=== PATIENT | male | born 1990 | race Hispanic/Latino ===

== ENCOUNTER 2019-04-29 08:39 | Emergency (ER) | payer SELFPAY ==
[2019-04-29 10:02] LABS: RAPID GROUP A STREP NEGATIVE (NEGATIVE)
== END 2019-04-29 10:29 | disposition home or self-care (01) ==
LOC: EDH 08:39
DX: K59.00 Constipation, unspecified (principal); Z90.49 Acquired absence of other specified parts of digestive tract; Z87.891 Personal history of nicotine dependence
CPT/HCPCS: 87804; 87880